=== PATIENT | female | born 1945 | race Caucasian/White ===

== ENCOUNTER 2017-09-17 05:35 | Day surgery (SDC) | payer MEDICARE, OTHER ==
[~2017-09-17] VITALS: Ht 172.7 cm; Wt 72.6 kg
[~2017-09-17 05:35] MED LIST: EFFEXOR XR150 MG PO; LORAZEPAM0.5 MG PO; LOVASTATIN20 MG PO
[2017-09-17] MEDS ORDERED: TRAZODONE HCL50 MG PO (06:10)
[2017-09-17] MEDS ORDERED: ASPIR-LOW81 MG PO (06:15)
[2017-09-17] MEDS ORDERED: ALEVE220 M1 PO (06:16)
[2017-09-17] MEDS ORDERED: VITAMIN B COMP1 EACH PO (06:17)
[2017-09-17] MEDS ORDERED: VITAMIN B-12500 MC2 PO (06:18)
[2017-09-17] MEDS ORDERED: MAGNESIUM200 MG PO (06:18)
[2017-09-17] MEDS ORDERED: VITAMIN D-32000 UNI1 PO (06:18)
[2017-09-17] MEDS ORDERED: VITAMIN C1000 MG PO (06:19)
--- NOTE | 2017-09-17 16:39 | OR ---
[facility] [address] [facility] [facility], [place] [address] Signed DATE OF OPERATION: 09/17/2017 SURGEON: Rahul Bhat MD PREOPERATIVE DIAGNOSES: 1. Colon screening. 2. Family history of colon cancer (brother and polyps in sister). POSTOPERATIVE DIAGNOSIS: Mild proctitis, otherwise normal. PROCEDURE: Total colonoscopy to cecum with biopsy of rectum. ANESTHESIA: Intravenous sedation, propofol infusion, Rahul Dunn CRNA. INDICATION: This 71-year-old, white woman is a patient of Dr. Kofi Antonio and here for colon screening. She has family history of colon cancer in her brother, who of the disease. Her sister had colon polyps. She is symptom-free. She has never had colonoscopy in the past. She does suffer from significant depression and anxiety, considered ASA class III. She is admitted to undergo colonoscopy by sedation with propofol. Understand the risks of bleeding, infection, and perforation. FINDINGS: The prep was good. Complete colonoscopy was undertaken to the cecum without question. There was no sign of polyps or diverticular formation. She did have mild inflammation of the rectum, but no sign of severe colitis in any way. Overall, the assessment would be normal except for mild proctitis, possibly related to bowel prep. PROCEDURE: The patient was brought to the endoscopy suite and placed in lateral decubitus position given intravenous sedation to the point of slurred speech and nystagmus. Digital rectal examination was normal. An Olympus video colonoscope was passed in the rectum and manipulated throughout the colon, ultimately intubating the cecum itself. The ileocecal valve and appendiceal orifice were normal. Scope was withdrawn from that point. Careful inspection upon withdrawal of scope showed no sign of abnormality. In the rectum, there was mild edema and minimal inflammation. A biopsy was obtained. Retroflexed view was undertaken showing some hemorrhoidal changes, but no problems of any sort. The scope was straightened withdrawn, removed and the patient was taken to recovery room in good condition. Electronically Signed By: RAHUL BHAT MD 09/17/17 1639 PATIENT NAME: GEOVANI COTTON OPERATIVE REPORT DATE OF : 49 PHYSICIAN: RAHUL BHAT MD REPORT #: [id number] REPORT IS CONFIDENTIAL AND NOT TO BE RELEASED WITHOUT AUTHORIZATION [address] [place], [place] [address] Signed CONCLUDING DIAGNOSIS: Mild proctitis, probably bowel prep related. PLAN: Recommend repeat colonoscopy in 10 years, sooner if clinically indicated. She will return to the ongoing care of Dr. Antonio. MD MONICA Dinh/DAVID /[id number] cc: Kofi Antonio MD Electronically Signed By: RAHUL BHAT MD 09/17/17 1639 PATIENT NAME: GEOVANI COTTON OPERATIVE REPORT DATE OF : 49 PHYSICIAN: RAHUL BHAT MD REPORT #: [id number] REPORT IS CONFIDENTIAL AND NOT TO BE RELEASED WITHOUT AUTHORIZATION
== END 2017-09-17 09:13 | disposition home or self-care (01) ==
LOC: OPS 05:35 → DS 05:35 → OPS 06:45 → DS 09:00 → OPS 09:00
PROVIDERS: Surgery
PROC: 0DBP8ZX Excision of Rectum, Via Natural or Artificial Opening Endoscopic, Diagnostic (ICD-10-PCS; principal; 2017-09-17 06:45)
DX: Z12.11 Encounter for screening for malignant neoplasm of colon (principal); K62.6 Ulcer of anus and rectum; K62.89 Other specified diseases of anus and rectum; K64.9 Unspecified hemorrhoids; F17.210 Nicotine dependence, cigarettes, uncomplicated; F32.9 Major depressive disorder, single episode, unspecified; Z88.2 Allergy status to sulfonamides; Z80.0 Family history of malignant neoplasm of digestive organs; Z90.710 Acquired absence of both cervix and uterus; Z98.890 Other specified postprocedural states; Z79.899 Other long term (current) drug therapy
CPT/HCPCS: 00810; 88305; J2704; J7120